=== PATIENT | female | born 1950 | race Caucasian/White ===

== ENCOUNTER 2019-09-05 12:23 | Inpatient (IN) | payer MEDICARE ==
[~2019-09-05] VITALS: Ht 167.6 cm; Wt 67.6 kg
[~2019-09-05 12:23] MED LIST: ATOR40TA78 PO; DULO30CA2 PO; HYDR-3652 PO; LISI-170 PO; MELO7.5T31 PO
[2019-09-05] MEDS ORDERED: CHLORHEXIDINE 15 ML UDC MM ONE (13:00)
[2019-09-05 13:09] VITALS: BP 171/82
[2019-09-05] MEDS ORDERED: LACTATED RINGERS 1,000 ML IV STA (13:31)
[2019-09-05] MEDS ORDERED: PROTAMINE SULFATE 10 MG/ML, 5ML ONE (13:35)
[2019-09-05] MEDS ORDERED: THROMBIN 20,000 UNIT VIAL TP ONE (13:35)
[2019-09-05] MEDS ORDERED: BUPIVACAINE/EPI 0.5% 1:200K ONE (13:35)
[2019-09-05] MEDS ORDERED: LACTATED RINGERS 1,000 ML IV ONE (14:00)
[2019-09-05] MEDS ORDERED: MIDAZOLAM 1 MG/ML, 2ML ONE (14:05)
[2019-09-05] MEDS ORDERED: FENTANYL PF 250 MCG/5ML ONE (14:06)
[2019-09-05] MEDS ORDERED: PROPOFOL 50 ML ONE (14:43)
[2019-09-05] MEDS ORDERED: HEPARIN 1,000 UNITS/ML, 30ML IVPB ONE (14:51)
[2019-09-05] MEDS ORDERED: ACETAMINOPHEN 325 MG TABLET PO PRN (16:30)
[2019-09-05] MEDS ORDERED: LABETALOL 5MG/ML, 20ML IV PRN (16:30)
[2019-09-05] MEDS ORDERED: FENTANYL PF 100 MCG/2ML IV PRN (16:30)
[2019-09-05] MEDS ORDERED: PROMETHAZINE 25 MG/ML, 1ML IVPush PRN (16:30)
[2019-09-05] MEDS ORDERED: ALBUTEROL SULFATE 2.5 MG/3 ML NPPB PRN (16:30)
[2019-09-05] MEDS ORDERED: MEPERIDINE/PF 25MG/0.5ML IVPush PRN (16:30)
[2019-09-05] MEDS ORDERED: LORazepam 2 MG/ML, 1ML IVPush PRN (16:30)
[2019-09-05] MEDS ORDERED: HYDROmorphone 1 MG/ML, 1ML INJ IVPush PRN (16:30)
[2019-09-05] MEDS ORDERED: OXYcodone 5 MG/5 ML ORAL.SOL UDC PO PRN (16:30)
[2019-09-05] MEDS ORDERED: hydrALAzine 20 MG/ML, 1ML IV PRN (16:30)
[2019-09-05] MEDS ORDERED: FENTANYL PF 100 MCG/2ML ONE (16:36)
[2019-09-05] MEDS ORDERED: SUCCINYLCHOLINE 20 MG/ML, 10ML ONE (17:08)
[2019-09-05] MEDS ORDERED: PROPOFOL 10 MG/ML, 20ML ONE (17:08)
[2019-09-05] MEDS ORDERED: ONDANSETRON 2MG/ML, 2ML ONE (17:08)
[2019-09-05] MEDS ORDERED: GLYCOPYRROLATE 0.2MG/1ML, 5ML ONE (17:08)
[2019-09-05] MEDS ORDERED: NEOSTIGMINE 1 MG/ML, 10ML ONE (17:08)
[2019-09-05] MEDS ORDERED: ROCURONIUM 10MG/ML,5ML ONE (17:08)
[2019-09-05] MEDS ORDERED: DEXAMETHASONE 4 MG/ML, 1ML ONE (17:08)
[2019-09-05] MEDS ORDERED: CEFAZOLIN 1,000 MG ONE (17:08)
[2019-09-05] MEDS ORDERED: ASPIRIN 325 MG TABLET EC ONE (17:52)
[2019-09-05 17:53] LABS: TROPONIN I < 0.015 ng/mL (0.000-0.045)
[2019-09-05] MEDS ORDERED: METOPROLOL TARTRATE 25 MG TAB PO ONE (18:00)
[2019-09-05] MEDS ORDERED: LACTATED RINGERS 1,000 ML IV SCH (18:30)
[2019-09-05] MEDS ORDERED: ASPIRIN 325 MG TABLET EC PO ONE (18:30)
[2019-09-05] MEDS: LABETALOL 5MG/ML, 20ML IVPush PRN (20:05)
[2019-09-05 21:44] LABS: TROPONIN I 0.316 ng/mL (0.000-0.045)
[2019-09-05] MEDS ORDERED: HYDR-3245 PO (21:49)
[2019-09-05] MEDS ORDERED: QUIN20TA17 PO (21:49)
[2019-09-05] MEDS: HYDROcodone/APAP 10/325 MG TABLET PO PRN (22:00)
[2019-09-05] MEDS: QUINAPRIL 20MG TABLET PO SCH (22:01)
[2019-09-05] MEDS ORDERED: NICOTINE 14MG/24 HR PATCH.TD24 TD ONE (22:30)
[2019-09-05] MEDS: ATORVASTATIN 40 MG TABLET PO SCH (23:05)
[2019-09-05] MEDS: morphine SULFATE 10 MG/ML, 1ML IVPush PRN (23:41)
[2019-09-06] MEDS: morphine SULFATE 10 MG/ML, 1ML IVPush PRN ×2 (00:59→04:43)
[2019-09-06] MEDS: HYDROcodone/APAP 10/325 MG TABLET PO PRN ×3 (02:14→20:33)
[2019-09-06] MEDS: METOPROLOL TARTRATE 25 MG TAB PO SCH ×2 (05:44→17:47)
[2019-09-06] MEDS ORDERED: HEPARIN 5,000 UNITS/ML, 1ML SQ SCH (06:00)
[2019-09-06 06:09] LABS: BASOPHILS # (AUTO) 0.02 x10^3/uL (0-0.1); BASOPHILS % (AUTO) 0 % (0-1); EOSINOPHILS % (AUTO) 0 % (1-7); LYMPHOCYTES # (AUTO) 0.88 x10^3/uL (1-3.4); LYMPHOCYTES % (AUTO) 7 % (22-44); MD NO; MEAN CORPUSCULAR HEMOGLOBIN 29.4 pg (27.0-34.8); MEAN CORPUSCULAR HGB CONC 33.8 g/dL (32.4-35.8); MEAN PLATELET VOLUME 8.9 fL (7.4-10.4); MONOCYTES % (AUTO) 6 % (2-9); NEUTROPHILS # (AUTO) 10.64 x10^3/uL (1.8-6.8); NEUTROPHILS % (AUTO) 87 % (42-75); PLATELET COUNT 177 x10^3/uL (130-400); RED BLOOD COUNT 4.26 x10^6/uL (3.82-5.3); RED CELL DISTRIBUTION WIDTH 13.8 % (9.6-15.2)
[2019-09-06 06:16] LABS: CHLORIDE 109 mmol/L (98-107)
[2019-09-06 06:26] LABS: ALANINE AMINOTRANSFERASE 17 U/L (12-78); ALBUMIN 3.5 g/dL (3.4-5.0); ALKALINE PHOSPHATASE 73 U/L (45-117); ANION GAP 9 mmol/L (5-15); BILIRUBIN,TOTAL 0.5 mg/dL (0.2-1.0); CALCIUM 8.6 mg/dL (8.5-10.1); CREATININE 0.73 mg/dL (0.55-1.02)
[2019-09-06] MEDS ORDERED: QUINAPRIL 5MG TABLET PO SCH (09:00)
[2019-09-06] MEDS: ASPIRIN 325 MG TABLET EC PO SCH (09:46)
[2019-09-06] MEDS: DULOXETINE 30 MG CAPSULE.DR PO SCH (09:46)
[2019-09-06] MEDS ORDERED: HEPARIN 5,000 UNITS/ML, 1ML IV ONE (10:30)
[2019-09-06] MEDS ORDERED: HEPARIN 5,000 UNITS/ML, 1ML IV PRN (10:30)
[2019-09-06] MEDS: QUINAPRIL 20MG TABLET PO SCH ×2 (10:37→20:33)
[2019-09-06] MEDS: HEPARIN 25,000 UNITS/250ML PMX 250 ML IV PRN (13:41)
[2019-09-06 14:11] LABS: TROPONIN I 0.955 ng/mL (0.000-0.045)
[2019-09-06] MEDS: ATORVASTATIN 40 MG TABLET PO SCH (20:33)
[2019-09-06 21:04] LABS: TROPONIN I 0.523 ng/mL (0.000-0.045)
[2019-09-06] MEDS: MELATONIN 5 MG TABLET PO PRN (22:43)
[2019-09-07 01:04] LABS: TROPONIN I 0.567 ng/mL (0.000-0.045)
[2019-09-07] MEDS: METOPROLOL TARTRATE 25 MG TAB PO SCH ×2 (05:29→17:15)
[2019-09-07 06:36] LABS: BASOPHILS # (AUTO) 0.05 x10^3/uL (0-0.1); BASOPHILS % (AUTO) 1 % (0-1); EOSINOPHILS % (AUTO) 1 % (1-7); LYMPHOCYTES # (AUTO) 2.09 x10^3/uL (1-3.4); LYMPHOCYTES % (AUTO) 21 % (22-44); MD NO; MEAN CORPUSCULAR HEMOGLOBIN 29.5 pg (27.0-34.8); MEAN CORPUSCULAR HGB CONC 33.8 g/dL (32.4-35.8); MEAN CORPUSCULAR VOLUME 87.5 fL (80-100); MEAN PLATELET VOLUME 8.9 fL (7.4-10.4); MONOCYTES # (AUTO) 0.69 x10^3/uL (0.2-0.8); MONOCYTES % (AUTO) 7 % (2-9); NEUTROPHILS # (AUTO) 6.99 x10^3/uL (1.8-6.8); NEUTROPHILS % (AUTO) 70 % (42-75); PLATELET COUNT 160 x10^3/uL (130-400); RED BLOOD COUNT 4.18 x10^6/uL (3.82-5.3); RED CELL DISTRIBUTION WIDTH 14.1 % (9.6-15.2)
[2019-09-07 06:42] LABS: ANION GAP 6 mmol/L (5-15); CALCIUM 8.6 mg/dL (8.5-10.1); CHLORIDE 112 mmol/L (98-107); CHOLESTEROL, TOTAL 146 mg/dL (140-239); CREATININE 0.54 mg/dL (0.55-1.02)
[2019-09-07 06:44] LABS: CHOL/HDL RATIO 2.4; HDL CHOL % 41 % (28-40); HDL CHOLESTEROL (DIRECT) 60 mg/dL (40-60); LDL CHOLESTEROL,CALCULATED 64 mg/dL (54-169); LDL/HDL RATIO 1.1 (0.5-3.0); TRIGLYCERIDES 108 mg/dL (50-200); VLDL CHOLESTEROL 22 mg/dL (0-25)
[2019-09-07] MEDS: POTASSIUM CHLORIDE 20 MEQ TAB.ER.PRT PO SCH ×2 (08:15→17:15)
[2019-09-07] MEDS: ASPIRIN 325 MG TABLET EC PO SCH (08:15)
[2019-09-07] MEDS: DULOXETINE 30 MG CAPSULE.DR PO SCH (08:15)
[2019-09-07] MEDS: QUINAPRIL 20MG TABLET PO SCH ×2 (08:16→20:43)
[2019-09-07] MEDS: HYDROcodone/APAP 10/325 MG TABLET PO PRN ×4 (08:16→21:22)
[2019-09-07] MEDS: AMLODIPINE 5 MG TABLET PO SCH ×2 (09:31→20:43)
[2019-09-07 10:07] LABS: TROPONIN I 0.493 ng/mL (0.000-0.045)
[2019-09-07] MEDS: HEPARIN 25,000 UNITS/250ML PMX 250 ML IV PRN (18:50)
[2019-09-07] MEDS: MELATONIN 5 MG TABLET PO PRN (20:43)
[2019-09-07] MEDS: ATORVASTATIN 40 MG TABLET PO SCH (20:43)
[2019-09-08] MEDS: HYDROcodone/APAP 10/325 MG TABLET PO PRN ×2 (03:36→19:39)
[2019-09-08] MEDS: LABETALOL 5MG/ML, 20ML IVPush PRN ×2 (03:36→18:39)
[2019-09-08] MEDS: METOPROLOL TARTRATE 25 MG TAB PO SCH ×2 (06:00→17:43)
[2019-09-08] MEDS: ASPIRIN 325 MG TABLET EC PO SCH (07:48)
[2019-09-08] MEDS: AMLODIPINE 5 MG TABLET PO SCH ×2 (07:49→19:39)
[2019-09-08] MEDS: QUINAPRIL 20MG TABLET PO SCH ×2 (07:49→19:39)
[2019-09-08] MEDS: DULOXETINE 30 MG CAPSULE.DR PO SCH (07:49)
[2019-09-08] MEDS: POTASSIUM CHLORIDE 20 MEQ TAB.ER.PRT PO SCH ×2 (07:49→17:42)
[2019-09-08] MEDS: hydrALAzine 20 MG/ML, 1ML IV PRN ×4 (08:13→18:16)
[2019-09-08] MEDS ORDERED: TICAGRELOR 90 MG TABLET ONE (14:24)
[2019-09-08] MEDS ORDERED: BIVALIRUDIN 250 MG ONE (14:24)
[2019-09-08] MEDS ORDERED: FENTANYL PF 100 MCG/2ML ONE (14:24)
[2019-09-08] MEDS ORDERED: VERAPAMIL 2.5 MG/ML, 2ML ONE (14:24)
[2019-09-08] MEDS ORDERED: MIDAZOLAM 1 MG/ML, 5ML ONE (14:24)
[2019-09-08] MEDS ORDERED: LIDOCAINE-MPF 1%, 5ML ONE (14:24)
[2019-09-08] MEDS ORDERED: HEPARIN 1,000 UNITS/ML, 10ML ONE (14:25)
[2019-09-08] MEDS ORDERED: PRASUGREL 10 MG TABLET ONE (15:17)
[2019-09-08] MEDS ORDERED: BIVALIRUDIN 250 MG in SODIUM CHLORIDE 0.9% 50 ML IV SCH (15:20)
[2019-09-08] MEDS: SODIUM CHLORIDE 0.9% 1,000 ML IV SCH ×2 (15:54→23:20)
[2019-09-08] MEDS: MELATONIN 5 MG TABLET PO PRN (19:38)
[2019-09-08] MEDS: ATORVASTATIN 40 MG TABLET PO SCH (19:39)
[2019-09-08] MEDS ORDERED: TEMAZEPAM 15 MG CAPSULE PO ONE (22:00)
[2019-09-09] MEDS: HYDROcodone/APAP 10/325 MG TABLET PO PRN (00:29)
[2019-09-09] MEDS: LABETALOL 5MG/ML, 20ML IVPush PRN (00:30)
[2019-09-09] MEDS ORDERED: LORazepam 2 MG/ML, 1ML IVPush ONE (03:00)
[2019-09-09 04:42] LABS: ANION GAP 6 mmol/L (5-15); CHLORIDE 112 mmol/L (98-107); CREATININE 0.64 mg/dL (0.55-1.02)
[2019-09-09] MEDS: METOPROLOL TARTRATE 25 MG TAB PO SCH (05:18)
[2019-09-09] MEDS ORDERED: PRASUGREL 10 MG TABLET PO SCH (09:00)
[2019-09-09 09:30] VITALS: BP 158/71
[2019-09-09] MEDS: QUINAPRIL 20MG TABLET PO SCH (09:43)
[2019-09-09] MEDS: ASPIRIN 325 MG TABLET EC PO SCH (09:43)
[2019-09-09] MEDS: AMLODIPINE 5 MG TABLET PO SCH (09:44)
[2019-09-09] MEDS: DULOXETINE 30 MG CAPSULE.DR PO SCH (09:44)
[2019-09-09] MEDS ORDERED: AMLO-150 PO (12:01)
[2019-09-09] MEDS ORDERED: PRAS10TA4 PO (12:01)
[2019-09-09] MEDS ORDERED: ATOR40TA78 PO (12:01)
[2019-09-09] MEDS ORDERED: METO25TA35 PO (12:01)
[2019-09-09] MEDS ORDERED: ASPI-650 PO (12:01)
== END 2019-09-09 14:30 | disposition home or self-care (01) | DRG 246 ==
LOC: ORIP 12:23 → CCU 18:09 → 5SO 09-09 12:05
PROVIDERS: ADMIT Surgery; ATTEND Hospitalist
PROC: 047L0ZZ Dilation of Left Femoral Artery, Open Approach (ICD-10-PCS; 2019-09-05)
PROC: 047 Lower Arteries, Dilation (ICD-10-PCS; 2019-09-05)
PROC: 04CY0ZZ Extirpation of Matter from Lower Artery, Open Approach (ICD-10-PCS; 2019-09-05)
PROC: 04CL0ZZ Extirpation of Matter from Left Femoral Artery, Open Approach (ICD-10-PCS; principal; 2019-09-05 14:30)
PROC: 027034Z Dilation of Coronary Artery, One Artery with Drug-eluting Intraluminal Device, Percutaneous Approach (ICD-10-PCS; 2019-09-08)
PROC: 4A023N7 Measurement of Cardiac Sampling and Pressure, Left Heart, Percutaneous Approach (ICD-10-PCS; 2019-09-08)
PROC: B2111ZZ Fluoroscopy of Multiple Coronary Arteries using Low Osmolar Contrast (ICD-10-PCS; 2019-09-08)
PROC: B2151ZZ Fluoroscopy of Left Heart using Low Osmolar Contrast (ICD-10-PCS; 2019-09-08)
DX: I70.212 Atherosclerosis of native arteries of extremities with intermittent claudication, left leg (principal); I21.A1 Myocardial infarction type 2; F11.20 Opioid dependence, uncomplicated; I50.32 Chronic diastolic (congestive) heart failure; I16.0 Hypertensive urgency; G89.29 Other chronic pain; E78.5 Hyperlipidemia, unspecified; E87.5 Hyperkalemia; I11.0 Hypertensive heart disease with heart failure; F17.210 Nicotine dependence, cigarettes, uncomplicated; F32.9 Major depressive disorder, single episode, unspecified; I27.20 Pulmonary hypertension, unspecified; Z90.710 Acquired absence of both cervix and uterus; Z82.49 Family history of ischemic heart disease and other diseases of the circulatory system; Z82.3 Family history of stroke
CPT/HCPCS: 36415; 70450; 71045; 80048; 80053; 80061; 82962; 83735; 84100; 84484; 85025; 85347; 85520; 86850; 86900; 87081; 88305; 93005; 93306; 93458; 99156; 99157; C1769; C1894; C9600; G0378; J0583; J0690; J1100; J1644; J2250; J2405; J2704; J2710; J2720; J3010; C1725; C1768; C1874; C1887; J0330; J0360; J2060; J2270; J7030; J7050; J7120; Q9967

== ENCOUNTER 2019-09-29 11:57 | Day surgery (SDC) | payer MEDICARE ==
[~2019-09-29] VITALS: Ht 167.6 cm; Wt 62.0 kg
[~2019-09-29 11:57] MED LIST changes: +AMLO-150 PO; +ASPI-650 PO; +HYDR-3245 PO; +METO25TA35 PO; +PRAS10TA4 PO; +QUIN20TA17 PO
[2019-09-29] MEDS ORDERED: VISIPAQUE 270 MG/ML, 50ML BOTTLE ONE (12:00)
[2019-09-29 12:17] VITALS: BP 163/76
[2019-09-29] MEDS ORDERED: D5%-0.45% NACL 1,000 ML IV SCH (12:18)
[2019-09-29] MEDS ORDERED: FLUMAZENIL 0.1 MG/1 ML, 5ML ONE (13:07)
[2019-09-29] MEDS ORDERED: FENTANYL PF 100 MCG/2ML ONE (13:07)
[2019-09-29] MEDS ORDERED: MIDAZOLAM 1 MG/ML, 5ML ONE (13:07)
[2019-09-29] MEDS ORDERED: PROTAMINE SULFATE 10 MG/ML, 25ML ONE (13:08)
[2019-09-29] MEDS ORDERED: HEPARIN 1,000 UNITS/ML, 10ML ONE (13:08)
[2019-09-29] MEDS ORDERED: NALOXONE 1 MG/ML, 2ML ONE (13:08)
[2019-09-29] MEDS ORDERED: LIDOCAINE 1%, 10ML ONE (13:13)
[2019-09-29] MEDS ORDERED: hydrALAzine 20 MG/ML, 1ML ONE (13:16)
== END 2019-09-29 15:45 | disposition home or self-care (01) ==
LOC: OUT 11:57
PROVIDERS: ATTEND Surgery
DX: I70.212 Atherosclerosis of native arteries of extremities with intermittent claudication, left leg (principal); I10 Essential (primary) hypertension; I25.10 Atherosclerotic heart disease of native coronary artery without angina pectoris; F32.9 Major depressive disorder, single episode, unspecified; F11.20 Opioid dependence, uncomplicated; F17.210 Nicotine dependence, cigarettes, uncomplicated; Z98.890 Other specified postprocedural states; Z90.710 Acquired absence of both cervix and uterus; Z72.89 Other problems related to lifestyle; Z79.82 Long term (current) use of aspirin; Z79.899 Other long term (current) drug therapy; Z82.49 Family history of ischemic heart disease and other diseases of the circulatory system
CPT/HCPCS: 36246; 75625; 75710; 99156; 99157; C1751; C1760; C1769; C1894; J0360; J2250; J3010; Q9966; J1644; J2720; J2310